=== PATIENT | male | born 1965 | race Caucasian/White ===

== ENCOUNTER → 2016-11-18 | Outpatient (CLI) | payer OTHER | END | disposition home or self-care (01) | LOC: RAD.S 07:06 | DX: G40.209 Localization-related (focal) (partial) symptomatic epilepsy and epileptic syndromes with complex partial seizures, not intractable, without status epilepticus (principal) ==

== ENCOUNTER 2016-12-11 11:56 | Day surgery (SDC) | payer OTHER ==
[~2016-12-11] VITALS: Ht 185.4 cm; Wt 100.2 kg
== END 2016-12-11 14:30 | disposition home or self-care (01) ==
LOC: RAD.S 11:56 → EDSTATUS 13:00 → RAD.S 14:30
DX: G40.209 Localization-related (focal) (partial) symptomatic epilepsy and epileptic syndromes with complex partial seizures, not intractable, without status epilepticus (principal); Z79.899 Other long term (current) drug therapy